=== PATIENT | male | born 2000 | race American Indian/Alaskan Native ===

== ENCOUNTER 2018-04-05 21:16 | Emergency (ER) | payer OTHER ==
[2018-04-05] MEDS ORDERED: HYDROmorphone 0.5 MG/0.5 ML SYRINGE IVPUSH ONE (21:21)
[2018-04-05] MEDS ORDERED: Metoclopramide 10 MG/2 ML SDV IVPUSH ONE (21:21)
[2018-04-05] MEDS ORDERED: Sodium Chloride 0.9% 1,000 ML IV ONE (21:23)
--- NOTE | 2018-04-05 21:29 | EDM.PDOC ---
ED HPI GENERAL MEDICAL PROBLEM - General Chief Complaint: Gastrointestinal Problem Stated Complaint: AMBULANCE Time Seen by Provider: 04/05/18 21:20 Source of Information: Reports: Patient, Family (mother) History Limitations: Reports: No Limitations - History of Present Illness INITIAL COMMENTS - FREE TEXT/NARRATIVE: 17-year-old male arrives via [facility] ambulance service for evaluation and treatment of epigastric pain. Patient reports that the pain started when he woke up this morning around 0700. States it is located in the epigastric area. Reports laying down seems to make the pain worse. No radiation up into his chest , lower abdomen or back. He describes the pain as a sharp sensation. Reports feeling nauseous earlier and vomited this morning but the nausea and vomiting seem to have improved. No back pain. Patient was given 10 g morphine by EMS, last dose was about 40 minutes prior to arrival. He was also given 8 of Zofran, 4 by mouth and for IV. Last dose of morphine was given about 2 hours prior to arrival in the ER. Patient reports that he drinks alcohol occasionally. Onset: Today Location: Reports: Abdomen Upper Abdominal Pain Score (Numeric/FACES): 8 - Related Data Allergies Allergy/AdvReac Type Severity Reaction Status Date / Time No Known Allergies Allergy Verified 04/05/18 21:23 Home Meds: Home Meds Dicyclomine [Bentyl] 20 mg PO TID PRN #20 tab 04/06/18 [Rx] Omeprazole 20 mg PO DAILY #20 cap.sr 04/06/18 [Rx] ED ROS GENERAL - Review of Systems Review Of Systems: See Below Cardiovascular: Denies: Chest Pain GI/Abdominal: Reports: Abdominal Pain (epigastric), Nausea, Vomiting. Denies: Hematemesis Musculoskeletal: Denies: Back Pain ED EXAM, GI/ABD - Physical Exam Exam: See Below Exam Limited By: No Limitations General Appearance: Alert, WD/WN, Moderate Distress Ears: Normal External Exam Nose: Normal Inspection Throat/Mouth: Normal Inspection, Normal Lips, Normal Voice, No Airway Compromise Respiratory/Chest: No Respiratory Distress, Lungs Clear, Normal Breath Sounds Cardiovascular: Normal Peripheral Pulses, Regular Rate, Rhythm GI/Abdominal Exam: Normal Bowel Sounds, Soft, Guarding, Tender (epigastric), Other (negative psosas sign, negative obturator sign, negative abbott's sign). No: Rigid Neurological: Alert, Oriented, Normal Cognition Psychiatric: Normal Affect, Normal Mood Skin Exam: Warm, Dry, Normal Color EKG INTERPRETATION EKG Date: 04/05/18 Time: 21:40 Rhythm: NSR Rate (Beats/Min): 52 [place]: Normal P-Wave: Present QRS: Normal ST-T: Normal QT: Normal EKG Interpretation Comments: NSR at 52 bpm. RSR' V2 - incomplete RBBB. LVH pattern normal for age. Diffuse early early repolarization pattern. Qt is mildly prolonged for rate. Reviewed by myself and Dr. Reardon. Course - Vital Signs Last Recorded V/S: Last Vital Signs Temp 98.3 F 04/05/18 21:18 Pulse 62 04/05/18 21:18 Resp 14 04/05/18 21:18 BP 155/91 H 04/05/18 21:18 Pulse Ox 100 04/05/18 21:18 - Orders/Labs/Meds Labs: Laboratory Tests 04/05/18 04/05/18 04/05/18 Range/Units 21:25 21:25 23:00 WBC 12.23 H (4.23-9.07) K/mm3 RBC 5.48 (4.63-6.08) M/mm3 Hgb 16.6 (13.7-17.5) gm/L Hct 48.2 (40.1-51.0) % MCV 88.0 (79.0-92.2) fl MCH 30.3 (25.7-32.2) pg MCHC 34.4 (32.2-35.5) g/dl RDW Std Deviation 43.8 (35.1-43.9) fL Plt Count 228 (163-337) K/mm3 MPV 10.1 (9.4-12.3) fl Neutrophils % (Manual) 81 H (40-60) % Band Neutrophils % 0 (0-10) % Lymphocytes % (Manual) 19 L (20-40) % Atypical Lymphs % 0 % Monocytes % (Manual) 0 L (2-10) % Eosinophils % (Manual) 0 L (0.8-7.0) % Basophils % (Manual) 0 L (0.2-1.2) Platelet Estimate Adequate RBC Morph Comment Normal Sodium 141 (136-145) mEq/L Potassium 3.4 L (3.5-5.1) mEq/L Chloride 103 (98-107) mEq/L Carbon Dioxide 26 (21-32) mEq/L Anion Gap 15.4 H (5-15) BUN 10 (7-18) mg/dL Creatinine 1.0 (0.7-1.3) mg/dL Est Cr Clr Drug Dosing 122.68 mL/min Estimated GFR (MDRD) > 60 (>60) mL/min BUN/Creatinine Ratio 10.0 L (14-18) Glucose 115 H (74-106) mg/dL Calcium 9.1 (8.5-10.1) mg/dL Total Bilirubin 0.7 (0.2-1.0) mg/dL GGT 47 (15-85) U/L AST 25 (15-37) U/L ALT 33 (16-63) U/L Alkaline Phosphatase 92 (46-116) U/L C-Reactive Protein < 0.2 (<1.0) mg/dL Total Protein 7.1 (6.4-8.2) g/dl Albumin 4.0 (3.4-5.0) g/dl Globulin 3.1 gm/dL Albumin/Globulin Ratio 1.3 (1-2) Lipase 77 (73-393) U/L Urine Color Yellow (Yellow) Urine Appearance Clear (Clear) Urine pH 8.5 H (5.0-8.0) Ur Specific [place] 1.015 (1.005-1.030) Urine Protein Trace H (Negative) Urine Glucose (UA) Negative (Negative) Urine Ketones 2+ H (Negative) Urine Occult Blood Negative (Negative) Urine Nitrite Negative (Negative) Urine Bilirubin Negative (Negative) Urine Urobilinogen 1.0 (0.2-1.0) Ur Leukocyte Esterase Trace H (Negative) Urine RBC 0-5 (0-5) /hpf Urine WBC 0-5 (0-5) /hpf Ur Epithelial Cells 0-5 (0-5) /hpf Amorphous Sediment Few H (NOT SEEN) /hpf Urine Bacteria Few (FEW) /hpf Urine Mucus Few (FEW) /hpf Ethyl Alcohol 0.00 (0.00) gm% Meds: Medications Discontinued Medications Generic Name Dose Route Start Last Admin Trade Name Freq PRN Reason Stop Dose Admin Al Hydroxide/Mg Hydroxide 30 0 ml 04/06/18 00:06 04/06/18 00:15 ml/ Lidocaine HCl 15 ml PO 04/06/18 00:07 45 ml ONETIME ONE Administration Diatrizoate Meglum/Diatrizoate Sod 120 ml 04/05/18 22:50 04/05/18 23:03 Gastrografin 37% PO 04/05/18 22:51 90 ml ONETIME ONE Administration Famotidine 20 mg 04/06/18 00:06 04/06/18 00:15 Pepcid IVPUSH 04/06/18 00:07 20 mg ONETIME ONE Administration Hydromorphone HCl 0.5 mg 04/05/18 21:21 04/05/18 21:42 Dilaudid IVPUSH 04/05/18 21:22 0.5 mg ONETIME ONE Administration Sodium Chloride 1,000 mls @ 999 mls/hr 04/05/18 21:23 04/05/18 21:42 Normal Saline IV 04/05/18 22:23 999 mls/hr ONETIME ONE Administration Iopamidol 150 ml 04/05/18 22:50 04/05/18 23:03 Isovue-300 (61%) IVPUSH 04/05/18 22:51 125 ml ONETIME ONE Administration Ketorolac Tromethamine 30 mg 04/06/18 00:06 04/06/18 00:15 Toradol IVPUSH 04/06/18 00:07 30 mg ONETIME ONE Administration Metoclopramide HCl 5 mg 04/05/18 21:21 04/05/18 21:42 Reglan IVPUSH 04/05/18 21:22 5 mg ONETIME ONE Administration Sodium Chloride 10 ml 04/05/18 22:50 04/05/18 23:03 Saline Flush FLUSH 10 ml ONETIME PRN Administration IV FLUSH - Radiology Interpretation Free Text/Narrative:: chest xray shows no acute intrathoracic process. CT of the abdomen and pelvis with IV and oral contrast impression per [facility]: there is probably a gastritis affecting the gastric body. - Re-Assessments/Exams Free Text/Narrative Re-Assessment/Exam: 04/05/18 23:00 Checked on the patient. Is doing well 0.5 mg IV Dilaudid. Just finished contrast. Awaiting CT. 04/06/18 00:[address] and labs the patient. His pain is starting to return. Will treat for gastritis with the GI cocktail. I will also give him some Toradol and some Pepcid. Plan will be to discharge home with a bland diet. I also put him on a PPI and bentyl. Recommend close follow-up this week. Discharge instructions as documented. Departure - Departure Time of Disposition: 00:15 Disposition: Home, Self-Care 01 Condition: Good Clinical Impression: Gastritis - Discharge Information *PRESCRIPTION DRUG MONITORING PROGRAM REVIEWED*: No *COPY OF PRESCRIPTION DRUG MONITORING REPORT IN PATIENT KALPESH: No Prescriptions: Dicyclomine [Bentyl] 20 mg PO TID PRN #20 tab PRN Reason: Abdominal Pain Omeprazole 20 mg PO DAILY #20 cap.sr Instructions: Gastritis, Adult, [id number] Referrals: PCP,None [Primary Care Provider] - Forms: ED Department Discharge Additional Instructions: take the bentyl 20mg tid prn abdominal pain. Start the omeprazole 1 Daily. Recommend taking something like Tums or Rolaids per package instructions for the next 3-5 days for additional discomfort relief. Aste-[id number] Tylenol as needed for discomfort. Do not take more than 4 grams of tylenol in one day. Recommend avoiding Motrin but you may take some if needed for additional pain relief. Follow-up with [facility] services early this week, Saturday or Saturday, for recheck of your symptoms. Recommend clear fluids tomorrow. May advance to a bland diet such as bread, rice, soft, toast, etc. Saturday as tolerated. Please return to ER if your symptoms change or worsen.
[2018-04-05] MEDS ORDERED: Diatrizoate Meglumine/Diatrizoate Sodium 37% 120 ML Bottle PO ONE (22:50)
[2018-04-05] MEDS ORDERED: Sodium Chloride 0.9% 10 ML Syringe FLUSH PRN (22:50)
[2018-04-05] MEDS ORDERED: Iopamidol 612 MG/ML 150 ML Bottle IVPUSH ONE (22:50)
[2018-04-06] MEDS ORDERED: Ketorolac 30 MG/ML SDV IVPUSH ONE (00:06)
[2018-04-06] MEDS ORDERED: Famotidine 20 MG/2 ML SDV IVPUSH ONE (00:06)
[2018-04-06] MEDS ORDERED: Alum Hydrox/Mag Hydrox/Simeth 30 ML, Lidocaine 2% 15 ML PO ONE ×2 (00:06)
--- NOTE | 2018-04-06 11:01 | CT ---
CT abdomen and pelvis Technique: Multiple axial sections were obtained from above the dome of the diaphragm inferiorly through the pubic symphysis. Intravenous and oral contrast was utilized. Images were obtained through the bladder. Comparison: No prior CT exam. Findings: Visualized lung bases show nothing acute. Liver shows no focal parenchymal abnormality. Gallbladder contains no calcified gallstones. Spleen appears within normal limits. Adrenal glands show no nodule. Pancreas appears normal. Low density thickening noted of the antral wall of the stomach suspicious for wall edema from gastritis. Aorta shows no aneurysmal dilatation. No retroperitoneal adenopathy or mesenteric abnormalities are seen. No pelvic mass or adenopathy is seen. Delayed images show contrast within the bladder. Appendix is seen and is normal in size. Bone window settings were reviewed which appear within normal limits for the patient's age. Impression: 1. Low density thickening within the antral wall of the stomach most likely due to wall edema from gastritis. 2. No additional abnormality is appreciated on CT study of the abdomen and pelvis. Diagnostic code #3 I agree with preliminary report issued by [facility] ([facility] report finalized on 04/06/18, 103 mm Central Time)
--- NOTE | 2018-04-06 11:01 | CR ---
Chest: Two views of the chest were obtained. Comparison: No prior chest x-ray. Heart size and mediastinum are normal. Lungs are clear. Bony structures are unremarkable. Impression: 1. Nothing acute is seen on two-view chest x-ray. Diagnostic code #1
== END 2018-04-06 00:29 | disposition home or self-care (01) ==
LOC: JD.ED 21:16
DX: K29.70 Gastritis, unspecified, without bleeding (principal)
CPT/HCPCS: 36415; 71046; 74177; 80053; 81001; 82977; 83690; 85007; 85027; 86140; 93005; 96361; 96374; 96375; 99285; A9270; G0480; J1170; J1885; J2765; J3490; J7040; J7050; Q9963; Q9967; 99284